=== PATIENT | male | born 1950 | race Caucasian/White ===

== ENCOUNTER 2022-08-28 07:02 | Emergency (ER) | payer MEDICARE, OTHER ==
[~2022-08-28] VITALS: Ht 182 cm; Wt 79.0 kg
[2022-08-28 07:07] VITALS: BP 138/71
[2022-08-28] MEDS ORDERED: LIDOCAINE UROJET 2% GEL 10 ML PKG ONE (07:12)
[2022-08-28] MEDS ORDERED: LIDOCAINE UROJET 2% GEL 10 ML PKG TOP ONE (07:15)
[2022-08-28] MEDS ORDERED: TAMSULOSIN 0.4 MG (FLOMAX) CAP PO STA (07:29)
--- NOTE | 2022-08-28 07:29 | ED GU-Male ---
General Stated Complaint: TROUBLE URINATING Source: patient, other (Dr. Mcintyre) Exam Limitations: no limitations History of Present Illness Date Seen by Provider: Aug 28, 2022 Time Seen by Provider: 07:08 Initial Comments This is 72-year-old gentleman presents to the emergency room with inability to urinate after having a prostate biopsy performed at [facility] yesterday. He was able to urinate when they stopped along the drive home yesterday but has not been able to urinate since. He has some bloody discharge from the urethral meatus. He is uncomfortable with the urge to urinate. He denies any fever. Patient reports a lesion was seen on his prostate after imaging was performed when his PSA was greater than 9. His local urologist is Dr. Fry. He continues on his postbiopsy prophylactic antibiotics. He is not presently on Flomax. Allergies and Home Medications Allergies Coded Allergies: No Known Drug Allergies (Unverified , 08/28/22) Patient Home Medication List Home Medication List Reviewed: Yes Tamsulosin HCl (Flomax) 0.4 Mg Cap, 0.4 MG PO DAILY Prescribed by: LEDA DAVILA on 08/28/22 0735 Review of Systems Review of Systems Constitutional: no symptoms reported EENTM: no symptoms reported Respiratory: no symptoms reported Cardiovascular: no symptoms reported Gastrointestinal: no symptoms reported Genitourinary: see HPI Musculoskeletal: no symptoms reported Skin: no symptoms reported Psychiatric/Neurological: No Symptoms Reported Endocrine: No Symptoms Reported Past Keeljdq-Izayyl-Slgjzh Hx Patient Social History Tobacco Use?: No Use of E-Cig and/or Vaping dev: No Substance use?: No Alcohol Use?: Yes Alcohol Frequency: Daily Past Medical History Surgeries: Yes (Prostate biopsy) Coronary Stent, Joint Replacement (Knee), Orthopedic (Foot pin) Respiratory: No Cardiac: Yes Coronary Artery Disease, Hypertension Neurological: No Genitourinary: Yes Prostate Problems Gastrointestinal: Yes Colitis (Ulcerative colitis) Musculoskeletal: No Endocrine: No HEENT: No Cancer: No Psychosocial: No Integumentary: No Physical Exam Vital Signs Vital Signs - First Documented 08/28/22 07:07 Temp 35.7 Pulse 64 Resp 16 B/P (MAP) 138/71 (93) Pulse Ox 99 O2 Delivery Room Air Capillary Refill : Height, Weight, BMI Height: '" Weight: lbs. oz. kg; BMI Method: General Appearance: WD/WN, no apparent distress HEENT: normal ENT inspection Neck: normal inspection Cardiovascular: regular rate, rhythm, no edema, no murmur Respiratory: lungs clear, normal breath sounds, no respiratory distress Gastrointestinal: normal bowel sounds, non tender, soft Male: other (Bloody discharge from the urethral meatus) Extremities: normal inspection, no pedal edema Neurologic/Psychiatric: no motor/sensory deficits, alert, normal mood/affect, oriented x 3 Skin: normal color, warm/dry Progress/Results/Core Measures Suspected Sepsis SIRS Temperature: Pulse: Respiratory Rate: Blood Pressure / Mean: Results/Orders Lab Results Laboratory Tests Test 08/28/22 07:28 Range/Units Urine Color SEAN H Urine Clarity SL CLOUDY Urine pH 5.0 5-9 Urine Specific [place] >=1.030 1.016-1.022 Urine Protein 2+ H NEGATIVE Urine Glucose (UA) NEGATIVE NEGATIVE Urine Ketones NEGATIVE NEGATIVE Urine Nitrite NEGATIVE NEGATIVE Urine Bilirubin NEGATIVE NEGATIVE Urine Urobilinogen 0.2 < = 1.0 MG/DL Urine Leukocyte Esterase NEGATIVE NEGATIVE Urine RBC (Auto) 3+ H NEGATIVE Urine RBC >100 H /HPF Urine WBC NONE /HPF Urine Squamous Epithelial Cells 2-5 /HPF Urine Crystals PRESENT H /LPF Urine Amorphous Sediment MOD REY URATES H /LPF Urine Bacteria NEGATIVE /HPF Urine Casts NONE /LPF Urine Mucus NEGATIVE /LPF Urine Culture Indicated NO My Orders Orders - LEDA RUDOLPH MD Ua Culture If Indicated (08/28/22 07:08) Ackerman Cath (08/28/22 07:08) Lidocaine 2% (Urojet) (Xylocaine Urojet) (08/28/22 07:15) Lidocaine 2% (Urojet) (Xylocaine Urojet) (08/28/22 07:12) Tamsulosin Capsule (Flomax Capsule) (08/28/22 07:29) Medications Given in ED Vital Signs/I&O 08/28/22 07:07 Temp 35.7 Pulse 64 Resp 16 B/P (MAP) 138/71 (93) Pulse Ox 99 O2 Delivery Room Air Capillary Refill : Progress Note : Progress Note Ackerman catheter was inserted without difficulty. About 850 mL of brownish tinged bloody urine was yielded. Patient had immediate relief. He was started on Flomax. See discharge instructions for further discussion. Departure Impression Primary Impression: Urinary retention Additional Impression: Prostate nodule Disposition: 01 HOME, SELF-CARE Condition: Improved Departure-Patient Inst. Decision time for Depature: 07:31 Referrals: JOHNNY FRY MD (PCP) Primary Care Physician Patient Instructions: How to Care for Your Ackerman Catheter, Male, Urinary Retention Add. Discharge Instructions: Drink plenty of clear liquids to stay well-hydrated and to flush your bladder and catheter. Complete the antibiotics previously prescribed. Review your urine culture results with Dr. Fry or Dr. Mcintyre on Friday. Empty your catheter bag frequently and keep the bag/canister below the level of your bladder as much as possible. Contact Dr. Fry's office today for follow-up instructions. Start Flomax as prescribed. Return to the ER for any other problems or concerns. Call with questions. Scripts Tamsulosin HCl (Flomax) 0.4 Mg Cap 0.4 MG PO DAILY, #30 CAP Prov: LEDA RUDOLPH MD 08/28/22 Copy Copies To 1: JOHNNY FRY MD, JOSHUA T MD Aug 28, 2022 07:29
[2022-08-28 07:34] LABS: BILIRUBIN,URINE NEGATIVE (NEGATIVE); CLARITY,URINE SL CLOUDY; COLOR,URINE AMBER; GLUCOSE, URINE (UA) NEGATIVE (NEGATIVE); KETONES,URINE NEGATIVE (NEGATIVE); LEUKOCYTE ESTERASE ,URINE NEGATIVE (NEGATIVE); NITRITE,URINE NEGATIVE (NEGATIVE); PROTEIN,URINE 2+ (NEGATIVE)
[2022-08-28] MEDS ORDERED: TMSL.4C PO (07:35)
[2022-08-28 07:42] LABS: AMORPHOUS SEDIMENT,UR MOD AMOR URATES /LPF; BACTERIA,URINE NEGATIVE /HPF; RBC,URINE >100 /HPF
== END 2022-08-28 07:55 | disposition home or self-care (01) ==
LOC: ER 07:04
DX: N40.3 Nodular prostate with lower urinary tract symptoms (principal); R33.8 Other retention of urine; Z98.890 Other specified postprocedural states
CPT/HCPCS: 51702; 81000